=== PATIENT | male | born 1965 | race Caucasian/White ===

== ENCOUNTER → 2019-08-19 14:02 | Outpatient (CLI) | payer OTHER | END | disposition home or self-care (01) | LOC: D.RAD 14:02 | PROVIDERS: ATTEND Emergency Medicine | DX: M79.672 Pain in left foot (principal) ==

== ENCOUNTER 2021-01-04 05:36 | Day surgery (SDC) | payer OTHER ==
[~2021-01-04] VITALS: Ht 180.3 cm; Wt 108.9 kg
--- NOTE | ~2021-01-04 | OP ---
PATIENT NAME: Aime SWEENEY MEDICAL RECORD: [id number] :61 LOCATION:D.OPS ADMISSION DATE: SURGEON: JACKELINE CASANOVA DPM DATE OF OPERATION: 01/04/2021 PREOPERATIVE DIAGNOSES: Equinus, left foot with Achilles tendinitis. POSTOPERATIVE DIAGNOSES: Equinus, left foot with Achilles tendinitis. PROCEDURE: Gastroc recession or Safia procedure, left leg. HEMOSTASIS: Left thigh tourniquet at 350 mmHg. ANESTHESIA: General with local infiltrate utilizing lidocaine and Marcaine plain 20 mL total of 1:1 mix of lidocaine and Marcaine. DESCRIPTION OF PROCEDURE: The patient was taken to the OR. Following induction of general anesthesia, the patient was placed on the operating table in a prone position. The left extremity was then prepped and draped in the usual aseptic technique followed by infiltration of local anesthetic. The left extremity was then exsanguinated and the tourniquet was inflated. A #15 blade was used to create a 3-4 cm linear incision over the posterior aspect of the aponeurosis of the gastroc soleus complex. The incision was deepened down bluntly through subcutaneous tissue, being sure to avoid the sural nerve of vein, it was retracted in the wound. The paratenon was visualized and incised with a #15 blade giving access to the posterior aspect of the aponeurosis. With the foot held in dorsiflexion, a cut was made through the aponeurosis from lateral to medial. Once a cut was made, the foot was allowed to move in proper amount of dorsiflexion. The wound was flushed. The peritenon was repaired with 4-0 Rapide. The subcutaneous tissue was reapproximated with 4-0 Rapide and the skin was closed with skin lisbet. Adaptic, 4 x 4s and conform were used to dress the wound followed by an Abdi wrap. Tourniquet was deflated. POSTOPERATIVE DETAILS: The patient tolerated the procedure well and left the OR with vital signs stable and vascular status at preoperative levels. The patient was transported to recovery per anesthesia in stable condition. 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
[~2021-01-04 05:36] MED LIST: LIPITOR40 MG PO; MOBIC7.5 MG PO; NORVASC5 MG PO; OMEPRAZOLE40 MG PO; SINGULAIR10 MG PO
[2021-01-04 06:05] LABS: BASOPHILS 0.4 % (0-2); EOSINOPHILS 5.6 % (0-7); HEMATOCRIT 47.2 % (42.0-54.0); HEMOGLOBIN 15.5 g/dL (13.5-17.5); IMMATURE GRANULOCYTES 0.4 % (0-5); LYMPHOCYTE ABS# 2.24 10x3/uL (1.32-3.57); LYMPHOCYTES 30.6 % (15-50); MCH 30.6 pg (26.0-34.0); MCHC 32.8 g/dL (31.0-37.0); MCV 93.3 fL (80.0-100.0); MEAN PLATELET VOLUME 10.1 fL (7.4-10.4); MONOCYTES 13.8 % (2-11); NEUTROPHIL ABS# 3.61 10x3/uL (1.78-5.38); NEUTROPHILS 49.2 % (40-80); PLATELET COUNT 263 10x3/uL (130-400); RBC 5.06 10x6/uL (4.20-6.10); RDW 13.6 % (11.5-14.5); WBC 7.3 10x3/uL (4.8-10.8)
[2021-01-04 06:38] VITALS: BP 127/82; Ht 180.3 cm; Wt 108.9 kg
[2021-01-04 06:46] LABS: CALC OSMOLALITY 280 mosm/kg (275-300); CALCIUM 8.6 mg/dL (8.5-10.1); CARBON DIOXIDE 23.4 mmol/L (21.0-32.0); CHLORIDE - SERUM 104 mmol/L (98-107); GLUCOSE 128 mg/dL (74-106); POTASSIUM - SERUM 3.8 mmol/L (3.5-5.1); SODIUM 138 mmol/L (136-145); UREA NITROGEN 20 mg/dL (7-18); eGFR NON AFRICAN AMERICAN 82 mL/min (90-120)
--- NOTE | 2021-01-04 09:40 | NUR ---
IV REMOVED DC'D WITH TIP INTACT. DISCHARGE INSTRUCTIONS PROVIDED. WHEELED OUT TO FAMILY.
== END 2021-01-04 09:55 | disposition home or self-care (01) ==
LOC: D.OPS 05:36
PROVIDERS: Anesthesiology; ATTEND Podiatrist
DX: M76.62 Achilles tendinitis, left leg (principal)